=== PATIENT | male | born 1980 | race Caucasian/White ===

== ENCOUNTER 2020-11-17 16:28 | Emergency (ER) | payer OTHER, SELFPAY ==
[2020-11-17 16:30] VITALS: BP 142/92; PULSE 88; RESP 16; TEMP 36.2; O2SAT 98; BMI 23.1
--- NOTE | 2020-11-17 16:39 | CT_ITS ---
STUDY: CT BRAIN WITHOUT CONTRAST REASON FOR EXAM: Male, 40 years old. Pt jumped off a skateboard and fell to pavement; large lac to mid forehead; pain to lt low back and abrasions to bilat knuckles. Denies loc. RADIATION DOSAGE (If Supplied By Facility): CTDIvol = ( 44.99 ) mGy, DLP = ( 812.98 ) mGycm TECHNIQUE: Transaxial CT imaging of the brain was performed without administration of intravenous contrast material. Individualized dose optimization techniques were used for this CT. COMPARISON: No relevant priors. FINDINGS: Soft tissue swelling and laceration of the frontal scalp. Normal calvarium. Normal size ventricles and extra-axial spaces for the patient''s age. Normal white matter tracts of the cerebral hemispheres. Normal basal ganglia and thalami. Normal brainstem. Normal cerebellum. There is no intracranial hemorrhage. There are no findings of an acute ischemic infarction. Normal visualized paranasal sinuses. CT/Brain/Head without Contrast IMPRESSION: 1. No acute intracranial hemorrhage or mass effect. 2. Frontal scalp soft tissue injury/laceration. Electronically Signed: Fredi Hernandez MD ([place]) at 17:00 EDT , Service support ,
[2020-11-17] MEDS: Diphth,Pertuss(Acell),Tet Vac 0.5 ML Vial IM (16:54)
[2020-11-17] MEDS: Lidocaine 2% /Epi 1:100 (20ml) 20 ML VIAL 10 ML INFILT (16:55)
--- NOTE | 2020-11-17 17:29 | EDS_ITS ---
HPI History of Present Illness Chief Complaint: Trauma Detail of Chief Complaint: Head injury 3 while skateboarding Informant: patient Narrative Narrative: Patient states that he was going down a hill on a skateboard when he got going too fast try to jump off of it falling and scraping his head on the concrete. No loss of consciousness. He denies neck pain. He denies visual changes. Patient unsure of his last tetanus shot. [facility] Medical History (Updated 11/17/20 @ 17:[address] Ricco Haynes DO) Fracture Home Medications NK 11/17/20 [History Last Taken Unknown] Allergy/AdvReac Type Severity Reaction Status Date / Time No Known Allergies Allergy Verified 11/17/20 16:30 Social History Smoking Status: Current every day smoker tobacco type: cigarettes ROS ROS ED Constitutional Constitutional ED: Reports systems reviewed and no addt'l complaints, except as documented; Denies body ache(s), change in weight or chills Eyes Eyes: Denies acute decrease in peripheral vision, change in vision, double vision or loss of vision ENT ENT ED: Reports none and other Details: Head injury/scalp laceration ; Denies ear pain, lip swelling, loss taste/smell, neck pain, otalgia or sore throat Cardiovascular Cardiovascular: Reports none; Denies abdominal pain, chest pain with activity, leg edema, lightheadedness, palpitations, rapid heart rate or syncope Respiratory/Chest Respiratory/Chest: Reports none; Denies change in mental status, dry cough, dyspnea, hemoptysis, shortness of breath at rest or shortness of breath with exertion Gastrointestinal Gastrointestinal: Reports none; Denies abdominal pain, change in stool character, diarrhea, hematemesis, hematochezia, melena, rectal bleeding or vomiting Genitourinary Genitourinary ED: Reports none; Denies abdominal discomfort, anuria, dysuria, genital pain or polyuria Musculoskeletal Musculoskeletal: Reports none; Denies arthralgias, back pain, difficulty walking, extremity pain, muscle weakness or myalgias Integumentary Reports none; Denies abscess or rash Neurologic Neurologic: Reports none; Denies abnormal gait, confusion, focal weakness, frequent falls, headache(s), loss of vision, numbness, paresthesias, radicular pain, vertigo or weakness Psychiatric Psychiatric: Reports systems reviewed and no addt'l complaints, except as documented and none; Denies behavioral changes, confusion, difficulty concentrating, hallucinations, suicidal ideation, tactile hallucinations or visual hallucinations Endocrine Endocrinology: Denies none, cold intolerance, excessive sweating, fatigue or heat intolerance Hematologic/Lymphatic Hematologic/Lymphatic: Reports none; Denies anemia, easy bleeding or easy bruising Allergic/Immunologic Allergic/Immunologic ED: Denies as per HPI, none, lip swelling, mouth swelling, throat swelling, tongue swelling or hives EXAM Physical Exam Const Vital Signs: 11/17/20 16:30 11/17/20 16:38 Temperature 97.2 F L Temperature Source Temporal Pulse Rate 88 Respiratory Rate 16 Respiratory Effort Normal Non-Labored Respiratory Depth Normal Respiratory Pattern Normal Blood Pressure 142/92 H Blood Pressure Mean 108 Pulse Ox 98 Oxygen Delivery Method Room Air Positive well nourished and well developed General Appearance ED: well developed and NAD HEENT Reports TM's clear and moist mucous membranes HEENT Narrative: Patient is a 6 cm laceration from the frontal scalp to the forehead with a central portion of scalp avulsed but still attached near the forehead. The stripe of avulsed scalp measures approximately 1 cm in diameter and 6 cm in length. No bony step-offs noted. Patient has a 1 cm laceration over the gnosticism on the right side of his forehead. normocephalic and trauma; Negative for atraumatic or tenderness Tympanic Membrane ED: Yes TM's clear Eyes PERRL and EOMs intact bilaterally General Eye ED: Negative for pale conjunctiva or scleral icterus Neck no lymphadenopathy, supple and no JVD General: Negative for tenderness Chest Wall inspection of chest normal and palpation of chest normal Chest: Negative for tenderness Resp normal respiratory effort and clear to auscultation bilaterally Effort and Inspection: Negative for respiratory distress or pain with movement Auscultation: Negative for rhonchi, wheezes or diminished lung sounds Cardio regular rate, regular rhythm, S1 normal heart sound, S2 normal heart sound and no murmurs Peripheral Pulses: pulses 2+ throughout GI normal to inspection, nondistended, normoactive bowel sounds, soft to palpation, non-tender, non-distended and no masses Back/Spine no CVA tenderness and no thoracic nor lumbar tenderness Extremity normal to inspection Extremity Narrative: Patient has abrasions to the knuckles of both hands. General Extremety ED: Negative for edema General Extremity: Negative for edema Neuro oriented x3, CN's II-XII intact bilaterally, no sensory deficits noted and gait normal Sensorium / Orientation: awake, alert, oriented to person, oriented to place and oriented to time Motor Exam: strength 5/5 throughout and strength abnormal Psych mental status grossly normal Skin no rashes or lesions noted and no wounds PROC Procedures Lacerations Scalp laceration: Length: 2.36 in Shape: Flap Prep: Sterile Conditions Laceration repair: Lidocaine with epi Irrigated (ml): 200 Number of Sutures/Ilene: 17 Suture Information: Ethilon Comment: Patient had a central strip of avulsed skin sutured to both sides of the laceration to obtain good coverage. MDM MDM Radiography Diagnostic Testing: Radiology Impression Brain CT 11/17/20 16:39 IMPRESSION: 1. No acute intracranial hemorrhage or mass effect. 2. Frontal scalp soft tissue injury/laceration. Electronically Signed: Fredi Hernandez MD ([place]) at 17:00 EDT , Service support , Discharge Plan Triage Chief Complaint: Trauma ED Provider: Ricco Haynes Dx/Rx/DC Orders Clinical Impression: CHI (closed head injury), Laceration of scalp Instructions: ED Head Injury (Adult), ED Laceration Face Suture or Tape ... Prescriptions: No Action NK RF: 0 Primary Care Provider: NOT,DEFINED Referrals: Jayson Maria MD [STAFF PHYSICIAN] - 10 Day for suture removal NOT,DEFINED [Primary Care Provider] - Disposition Disposition: Home, self care
== END 2020-11-17 17:52 | disposition home or self-care (01) ==
LOC: ED 17:40
PROVIDERS: Emergency Provider Emergency Medicine
DX: S01.01XA Laceration without foreign body of scalp, initial encounter (principal); F17.210 Nicotine dependence, cigarettes, uncomplicated; V00.131A Fall from skateboard, initial encounter; Y93.I9 Activity, other involving external motion; Y92.89 Other specified places as the place of occurrence of the external cause; Y99.8 Other external cause status
CPT/HCPCS: 12002; 70450; 90471; 90715; 99284

== ENCOUNTER 2025-04-26 16:28 | Emergency (ER) | payer BC, SELFPAY ==
[2025-04-26 16:29] VITALS: BP 127/83; PULSE 78; RESP 16; TEMP 36.2; O2SAT 98
--- NOTE | 2025-04-26 17:20 | ED.VIS.LOWEX ---
HPI History of Present Illness Chief Complaint: Laceration Narrative Narrative: 44-year-old male who denies significant past medical history presents with injury to his left foot patient that he sustained today. This was approximately 4 to 5 hours ago. 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 He box digit, and the blade was not locked. He tipped it and the blade fell onto his left foot injuring his left toe. He sustained a laceration running obliquely to the left side of his great toe. He believes his tetanus immunization is current, less than 5 years. He denies other injury. He thought maybe the bleeding was controlled, and had wrapped up his foot, but with continued bleeding, went to urgent care. Urgent care instructed him to come to the emergency department as they felt this was a complex laceration. Tetanus Immunization: <5 years [facility] Medical History Fracture Home Medications ?Medication ?Instructions ?Recorded ?Last Taken ?Type NK 11/17/20 Unknown History Allergy/AdvReac Type Severity Reaction Status Date / Time No Known Allergies Allergy Verified 04/26/25 16:31 Social History Smoking Status: Current every day smoker tobacco type: cigarettes ROS ROS ED ROS Narrative Review of systems positive for laceration to left great toe, denies other injuries. Does not take blood thinners. Immunization/Tdap current. EXAM Physical Exam Narrative Exam Narrative: GCS 15. ABCs intact. Focused examination of the left great toe does show a laceration running obliquely that is approximately 3 cm in length with minimal active bleeding, no pulsatile bleeding. Full range of motion of left great toe with good capillary refill distally. Palpable dorsalis pedis pulse. It is more medial to the extensor houses longus tendon. No apparent tendon injury through full range of motion of toe. Const Vital Signs: 04/26/25 16:29 Temperature 97.2 F L Temperature Source Temporal Pulse Rate 78 Respiratory Rate 16 Blood Pressure 127/83 H Blood Pressure Mean 97 Pulse Ox 98 Oxygen Delivery Method Room Air MDM MDM MDM Narrative Medical decision making narrative: I do not feel differential diagnosis is indicated. Additionally I do not feel that the patient requires x-ray as he has no bony tenderness. He was told the risk of infection and scarring and acknowledges an understanding. See procedure note for details of wound closure. Patient is to look for signs of infection. He can take [id number] medications as required. He will follow-up with his primary care provider for suture removal in 7 to 10 days. Return instructions to the emergency department were reviewed. Disposition is discharged home in stable condition. Procedures Lacerations Left great toe: Length: 1.18 in Depth: Skin Shape: Linear (Running obliquely) Prep: Sterile Conditions and Shure-Clens Laceration repair: Lidocaine, Local, Skin sutures and Wound explored Irrigated (ml): 150 Number of Sutures/Ilene: 5 Suture Information: Ethilon and 4-0 Comment: Patient tolerated procedure well Discharge Plan Triage Chief Complaint: Laceration ED Provider: Jamel Ray Dx/Rx/DC Orders Clinical Impression: Laceration of foot, left Instructions: ED Laceration, Foot: All Closures Prescriptions: No Action NK Primary Care Provider: Care Physician,No Primary Referrals: Wilberto Yeh DPM [Med Staff - Active Staff, Podiatry] - As Needed Care Physician,No Primary [Primary Care Provider, Medical] Activity Restrictions/Additional Instructions: Follow-up with your primary care provider for removal of sutures in 7 to 10 days. Look for signs of infection including drainage or pus from wound, increased redness surrounding wound, red streak up your foot, fever. [id number] medication such as Tylenol or ibuprofen as needed for pain. Print Language: Danish Disposition Disposition: Home, Self Care
[2025-04-26 17:21] VITALS: BP 115/91; PULSE 75; RESP 18; TEMP 37; O2SAT 97; BMI 21.7
[2025-04-26] MEDS: Lidocaine 1% (20 ml mdv) 20 ML Vial INFILT (17:28)
== END 2025-04-26 18:02 | disposition home or self-care (01) ==
LOC: ED 17:34
PROVIDERS: Emergency Provider Emergency Medicine; Visit Provider Emergency Medicine
DX: S91.112A Laceration without foreign body of left great toe without damage to nail, initial encounter (principal); F17.210 Nicotine dependence, cigarettes, uncomplicated; W26.0XXA Contact with knife, initial encounter
CPT/HCPCS: 12002; 99283